=== PATIENT | female | born 1960 | race Caucasian/White ===

== ENCOUNTER → 2019-11-28 14:52 | Outpatient (CLI) | payer MEDICARE, MEDICAID, SELFPAY ==
[2019-11-28 18:41] LABS: Coronavirus 19 IgG Antibody Negative (Negative); Coronavirus 19 IgM Antibody Negative (Negative)
== END ==
PROVIDERS: PCP Nurse Practitioner Family; Visit Provider Nurse Practitioner Family
DX: Z03.818 Encounter for observation for suspected exposure to other biological agents ruled out (principal)
CPT/HCPCS: 36415; 86328

== ENCOUNTER 2024-09-29 12:46 | Emergency (ER) | payer MEDICARE, SELFPAY ==
[2024-09-29 12:53] VITALS: BP 134/57; PULSE 99; RESP 18; TEMP 36.8; O2SAT 100; BMI 27.4
--- NOTE | 2024-09-29 13:06 | CT_ITS ---
FINAL REPORT TECHNIQUE: After the administration of intravenous contrast, axial images were obtained through the abdomen and pelvis by computed tomography. The study was performed with techniques to keep radiation dose as low as reasonably achievable, (ALARA). Individual dose reduction techniques using automated exposure control or adjustment of mA and/or kV according to the patient's size were employed. CLINICAL HISTORY: Abdominal pain, vaginal bleeding, hx of cervix CA COMPARISON: Ultrasound dated 09/29/2024 FINDINGS: Abdomen: The lung bases are clear. A small hiatal hernia is present. The liver parenchyma is homogeneous. The gallbladder is absent. The spleen, pancreas, and adrenals appear unremarkable. There are parapelvic renal cysts noted bilaterally. The aorta is normal in caliber. There is no free fluid or adenopathy. Pelvis: The appendix is normal in appearance. There is an enlarged, heterogeneous appearance of the cervix, which measures 5.2 cm in diameter. There is mild stranding in the adjacent fat seen at the margins. The urinary bladder is contracted, and probably thick-walled secondary to the compressed state. There is no free fluid or adenopathy. IMPRESSION: Enlarged, heterogeneous cervix which measures 5.2 cm in diameter, with mild stranding in the adjacent fat seen at the margins, consistent with the patient's known cervical cancer. Bilateral parapelvic renal cysts are noted. Reviewed, Interpreted and Dictated by Parish Muñoz MD Transcribed by Cassie Manley Authenticated and [facility]
--- NOTE | 2024-09-29 13:07 | US_ITS ---
PROCEDURE INFORMATION: Exam: US Pelvis, Transvaginal, Non-Obstetric Exam date and time: 09/29/2024 1:56 PM Age: 64 years old Clinical indication: Condition or disease; Cancer; Location of cancer or specific organ: Cx; Additional info: HX of cervical CA vag bleeding TECHNIQUE: Imaging protocol: Real-time transvaginal pelvic (non-obstetric) ultrasound with image documentation. Transvaginal imaging was used for better evaluation of the endometrium, adnexa, and/or cervix. COMPARISON: No relevant prior studies available. FINDINGS: Uterus: Uterus 6.8 x 3.2 x 4.9 cm. Cervical mass or adjacent masses measuring 1.9 x 2.2 cm and 1.1 x 1.4 cm. Endometrial stripe thickness 9 mm anteroposterior. Right ovary/adnexa: Right ovary not seen. Left ovary/adnexa: Left ovary not seen. Urinary bladder: Urinary bladder is limited. Intraperitoneal space: No free fluid. IMPRESSION: 1. Cervical mass or adjacent masses measuring 1.9 x 2.2 cm and 1.1 x 1.4 cm. 2. Endometrial stripe thickness of 9 mm is greater than expected for patient's age.
--- NOTE | 2024-09-29 13:08 | ED_ITS ---
Discharge Plan Disposition Patient Disposition: Home, Self-Care Condition: Good Prescriptions Prescriptions: New tramadol 50 mg tablet 50 mg PO Q8H PRN (Reason: pain) Qty: 12 0RF cefdinir 300 mg capsule 300 mg PO BID 7 Days Qty: 14 0RF Referrals Follow up/Referrals: Provider,Referral, [Primary Care Provider] - See instructions Activity Restrictions/Add. Instructions Additional Instructions/Restrictions: Your transvaginal ultrasound revealed a cervical mass and adjacent masses measuring 1.9 x 2.2 and 1.1, x1.4cm, your endometrial stripe thickness is of 9 mm which is graded to be expected for your age. Your CT of your abdomen and pelvis with IV contrast revealed an enlarged, heterogeneous cervix which measures around 5.2 cm in diameter with mild stranding in your adjacent fat seen at the margins of this is consistent with your known history of cervical cancer, there is also bilateral peripelvic renal cyst noted. Please show these results of your outside imaging studies to your cancer physician/women's health doctor at your next appointment. Please utilize your antibiotic for urinary tract infection as prescribed, please take with food. Please return to the emergency department with any worsening signs or symptoms to include worsening bleeding, feeling faint, or worsening pain, bleeding that soaks through more than 2 pads in an hour. Clinical Impressions Clinical Impression: Cervical cancer, Abnormal vaginal bleeding Instructions Patient Instructions: DI for Urinary Tract Infection (UTI), DI for Vaginal Bleeding Print Language Print Language: [place] Islander Discharge ED Provider: Chanel Zacarias General Adult HPI <KEVIN South - Last Filed: 09/29/24 17:08> General Chief complaint: Urogenital-Female Stated complaint: Cervical cancer symptoms has worsen Time Seen by Provider: 09/29/24 12:49 Mode of Arrival: Ambulatory Source of Information: Patient Description of Symptoms (Recalled from ER Triage Doc. by RN): Pt states she has a history of cervical cancer, and completed chemo and radiation in august 2024. Pt states last night she started to have vaginal bleeding and had a baseball sized blood clot that has passed and is soaking about 1 pad an hour. History of Present Illness HPI narrative: 64-year-old female presents to the emergency department with a 1 day history of lower abdominal cramping and diffuse vaginal bleeding, describes it as large clots , and up to soak through 1-2 pads, that occurred last night. Patient has a history of cervical cancer, unknown of which type, currently undergoing chemotherapy and radiation last chemotherapy and radiation treatment was last month in [place] this is where the patient lives, she is here visiting family at this time. She admits to subjective fever and chills, denies any chest pain, shortness of breath, denies any constipation diarrhea, denies any urinary type symptomatology, denies any abdominal pain at this time, denies any real hematochezia, hematemesis, or hemoptysis, patient states she does have past medical history consistent with hemorrhoids, and aortic stenosis, otherwise no other real relevant past medical history takes no other medications at home except for occasional baby aspirin for headache. She is a non-smoker denies any alcohol or drug use initial triage vitals are unremarkable. Onset (ago): day(s) Related Data Previous Rx's ?Medication ?Instructions ?Recorded cefdinir 300 mg capsule 300 mg PO BID 7 days #14 caps 09/29/24 tramadol 50 mg tablet 50 mg PO Q8H PRN pain #12 tabs 09/29/24 Allergies Allergy/AdvReac Type Severity Reaction Status Date / Time NO KNOWN ALLERGIES Allergy Uncoded 05/05/17 14:54 [facility] <KEVIN South - Last Filed: 09/29/24 17:08> [facility] Disclaimer: The information contained in this section may have been updated after the patient was seen, as this information can be updated by other users. Social History (Updated 09/29/24 @ 17:08 by KEVIN South) Smoking Status: Never smoker alcohol intake: never current occupational status: other Travel in the last 8 weeks?: None Have you lived/traveled outside US in past 30 days?: No Contact w/someone who lives/traveled outside US past 30 days?: No Exposure to someone with infectious disease in past 14 days?: No Do you have a fever (greater than 100.4 F or 38 C)?: No Have you tested positive for COVID-19?: No Exposed to someone with COVID-19 in past 14 days?: No Do you have a sore throat?: No Do you have a cough?: No Do you have any weakness?: No Do you have any diarrhea?: No Are you experiencing any unusual bleeding?: No Do you have any muscle aches/pain?: No Do you have any abdominal pain?: No Are you experiencing loss of taste or smell?: No <KEVIN South - Last Filed: 09/29/24 17:08> ROS Obtained: Yes All systems reviewed & no additional complaints except as documented Physical Exam <KEVIN South - Last Filed: 09/29/24 17:08> General General appearance: alert and in no apparent distress Head Head exam: atraumatic and normocephalic Eye Eye exam: Present PERRL and EOMI ENT ENT exam: Present mucous membranes moist Neck Neck exam: Present normal inspection Chest Chest inspection: Present normal inspection and symmetric chest wall rise Respiratory Respiratory exam: Present normal lung sounds bilaterally; Absent respiratory distress, wheezes or stridor Cardiovascular Cardiovascular exam: Present regular rate and normal rhythm Abdominal Exam Abdominal exam: Present soft; Absent tenderness, guarding, rebound or rigidity Extremities Exam Extremities exam: Present normal inspection Neurological Exam Neurological exam: Present alert and oriented X3 Psychiatric Psychiatric exam: Present normal affect Skin Skin exam: Present warm and dry Medical Decision Making <KEVIN South - Last Filed: 09/29/24 17:08> Medical Records Medical records reviewed: Yes I reviewed the patient's medical records. Screening: Per USPSTF and CDC recommendations, given the prevalence of disease in our region, it is our hospital?s policy to screen for HIV and viral Hepatitis for all patients aged 18 and over and those with ongoing risk factors. Travis Inquiry Pt receiving controlled substance: No Travis was queried for this patient: No Vital Signs: 09/29/24 12:53 09/29/24 15:01 09/29/24 17:22 Temperature 98.3 F 98.0 F Temperature Source Oral Pulse Rate 77 86 Pulse Rate [Right] 99 H Respiratory Rate 18 19 Blood Pressure 166/59 H 131/62 Blood Pressure [Right Arm] 134/57 L Blood Pressure Mean [Right Arm] 82 Blood Pressure Source [Right Arm] Automatic Cuff Blood Pressure Position [Right Arm] Sitting 02 Sat by Pulse Oximetry 100 97 Oxygen Delivery Method Room Air Room Air Lab Data Lab Results 09/29/24 13:14: WBC 4.3 L, RBC 4.19 L, Hgb 12.8, Hct 40.0, MCV 95.5, MCH 30.5, MCHC 32.0, RDW 14.7, Plt Count 113 L, MPV 10.1, Neut % (Auto) 65.0, Lymph % (Auto) 24.7, Jenkins % (Auto) 6.8, Eos % (Auto) 2.4, Baso % (Auto) 0.9, Neut # (Auto) 2.8, Lymph # (Auto) 1.1, Jenkins # (Auto) 0.3, Eos # (Auto) 0.1, Baso # (Auto) 0.0, Sodium 140, Potassium 4.4, Chloride 107, Carbon Dioxide 28, Anion Gap 9.4, BUN 16, Creatinine 1.10 H, Estimated Creat Clear 58, Estimated GFR 50 L , Est GFR ( Amer) 60, Glucose 114 H, Lactate 0.9, Calcium 9.5, Total Bilirubin 1.7 H, AST 38 H, ALT 19, Alkaline Phosphatase 111, Total Protein 7.8, Albumin 4.8, Globulin 3.0, Albumin/Globulin Ratio 1.6, Lipase 349 H 09/29/24 13:28: Blood Type A Positive, Antibody Screen Negative 09/29/24 15:43: Urine Color Red, Urine Appearance Turbid, Urine pH 5.0, Ur Specific [place] 1.020, Urine Protein 3+ A, Urine Glucose (UA) Trace, Urine Ketones 1+, Urine Blood 3+ A, Urine Nitrate Positive A, Urine Bilirubin Negative, Urine Urobilinogen 2.0, Ur Leukocyte Esterase 2+ A, Urine RBC Tntc, Urine WBC 5-10, Ur Squamous Epith Cells Occasional, Urine Bacteria Trace 09/29/24 13:14 09/29/24 13:14 Orders (Tests/Meds): ED MEDICATIONS Discontinued Medications Generic Name Dose Route Start Last Admin Trade Name Freq PRN Reason Stop Dose Admin Ceftriaxone Sodium 1 gm/ 50 mls @ 100 mls/hr 09/29/24 16:30 09/29/24 16:53 Sodium Chloride IV 09/29/24 16:59 Not Given ONCE ONE Ceftriaxone Sodium 1 gm/ 50 mls @ 100 mls/hr 09/29/24 16:54 09/29/24 16:58 Sodium Chloride IV 09/29/24 17:23 100 mls/hr ONCE ONE Administration Iopamidol 75 ml 09/29/24 14:53 09/29/24 14:54 Iopamidol-370 (76%);100ml Bottle IV 09/29/24 14:54 75 ml ONCE ONE Administration Sodium Chloride 10 ml 09/29/24 14:53 09/29/24 14:54 Sodium Chloride 0.9% 10ml Syr (Rad Only) IV 09/29/24 14:54 10 ml ONCE ONE Administration ORDERS Category Date Time Status Type and Screen Stat BBK 09/29/24 13:[address] abdomen pelvis w con Stat Cat Scan 09/29/24 13:06 Completed US transvaginal Stat Exams 09/29/24 13:07 Completed Complete Blood Count Auto Diff Stat Lab 09/29/24 13:14 Completed Comprehensive Metabolic Panel Stat Lab 09/29/24 13:14 Completed Lactic Acid Stat Lab 09/29/24 13:14 Completed Lipase Stat Lab 09/29/24 13:14 Completed Urinalysis and Microscopic Stat Lab 09/29/24 15:43 Completed Urine Culture Stat Micro 09/29/24 15:43 Received Medical Decision Narrative: 64-year-old female presents emergency department with vaginal bleeding, differential diagnosis include but not limited to, malignancy, abnormal uterine bleeding, polyp, fibroid, adenomyosis, endometriosis among others. I discussed patient case with attending physician Dr. Chinchilla Will obtain basic laboratory studies, type and screen, lactate lipase, urinalysis, transvaginal ultrasound, CT abdomen pelvis with contrast to be performed Mild leukopenia 4.3, hemoglobin hematocrit within normal limits, however there is some thrombocytopenia at 113 unsure of baseline CMP is notable for only elevated creatinine 1.1, no lactic acidosis total bilirubin is minimally elevated at 1.7, AST elevated at 38, lipase elevated at 349 I reviewed the patient's TVUS along the corresponding radiological report, cervical mass or adjacent masses measuring 1.9 x 2.2 cm and 1.1 x 1.4 cm endometrial stripe thickness 9 mm greater than expected for patient's age. Blood type a positive Urinalysis is notable for 3+ proteinuria, 1+ ketonuria, positive nitrites, 3+ hematuria, 2+ leukocyte esterase. Urine RBCs are too numerous to count, 5-10 WBCs, occasional squamous epithelial cells and trace urine bacteria, will give 1 g IV ceftriaxone for UTI. I reviewed the patient CT abdomen pelvis with contrast on the corresponding radiologic report, enlarged heterogeneous cervix which measures 5.2 cm in diameter with mild stranding in the adjacent fat seen at the margins consistent with patient's known cervical cancer, bilateral parapelvic renal cyst are noted. I discussed all results with the patient at the bedside, with treat patient with cefdinir 300 mg p.o. for UTI, and will refill patient's tramadol p.o. as needed for pain with ongoing cervical cancer, patient has appointment upcoming in September on the in [place] which is where she is from with her cancer physicians/providers, patient was given vaginal bleeding return precautions, hemoglobin hematocrit are stable, hemodynamically stable throughout her time in the emergency department, patient will return to emergency with any worsening signs or symptoms. Follow-up with providers as directed. Patient voiced understanding of the [facility] plan/discharge plan. <Romario Chinchilla MD - Last Filed: 09/30/24 08:18> Vital Signs: 09/29/24 12:53 09/29/24 15:01 09/29/24 17:22 Temperature 98.3 F 98.0 F Temperature Source Oral Pulse Rate 77 86 Pulse Rate [Right] 99 H Respiratory Rate 18 19 Blood Pressure 166/59 H 131/62 Blood Pressure [Right Arm] 134/57 L Blood Pressure Mean [Right Arm] 82 Blood Pressure Source [Right Arm] Automatic Cuff Blood Pressure Position [Right Arm] Sitting 02 Sat by Pulse Oximetry 100 97 Oxygen Delivery Method Room Air Room Air Lab Data Lab Results 09/29/24 13:14: WBC 4.3 L, RBC 4.19 L, Hgb 12.8, Hct 40.0, MCV 95.5, MCH 30.5, MCHC 32.0, RDW 14.7, Plt Count 113 L, MPV 10.1, Neut % (Auto) 65.0, Lymph % (Auto) 24.7, Jenkins % (Auto) 6.8, Eos % (Auto) 2.4, Baso % (Auto) 0.9, Neut # (Auto) 2.8, Lymph # (Auto) 1.1, Jenkins # (Auto) 0.3, Eos # (Auto) 0.1, Baso # (Auto) 0.0, Sodium 140, Potassium 4.4, Chloride 107, Carbon Dioxide 28, Anion Gap 9.4, BUN 16, Creatinine 1.10 H, Estimated Creat Clear 58, Estimated GFR 50 L , Est GFR ( Amer) 60, Glucose 114 H, Lactate 0.9, Calcium 9.5, Total Bilirubin 1.7 H, AST 38 H, ALT 19, Alkaline Phosphatase 111, Total Protein 7.8, Albumin 4.8, Globulin 3.0, Albumin/Globulin Ratio 1.6, Lipase 349 H 09/29/24 13:28: Blood Type A Positive, Antibody Screen Negative 09/29/24 15:43: Urine Color Red, Urine Appearance Turbid, Urine pH 5.0, Ur Specific [place] 1.020, Urine Protein 3+ A, Urine Glucose (UA) Trace, Urine Ketones 1+, Urine Blood 3+ A, Urine Nitrate Positive A, Urine Bilirubin Negative, Urine Urobilinogen 2.0, Ur Leukocyte Esterase 2+ A, Urine RBC Tntc, Urine WBC 5-10, Ur Squamous Epith Cells Occasional, Urine Bacteria Trace Orders (Tests/Meds): ED MEDICATIONS Discontinued Medications Generic Name Dose Route Start Last Admin Trade Name Freq PRN Reason Stop Dose Admin Ceftriaxone Sodium 1 gm/ 50 mls @ 100 mls/hr 09/29/24 16:30 09/29/24 16:53 Sodium Chloride IV 09/29/24 16:59 Not Given ONCE ONE Ceftriaxone Sodium 1 gm/ 50 mls @ 100 mls/hr 09/29/24 16:54 09/29/24 16:58 Sodium Chloride IV 09/29/24 17:23 100 mls/hr ONCE ONE Administration Iopamidol 75 ml 09/29/24 14:53 09/29/24 14:54 Iopamidol-370 (76%);100ml Bottle IV 09/29/24 14:54 75 ml ONCE ONE Administration Sodium Chloride 10 ml 09/29/24 14:53 09/29/24 14:54 Sodium Chloride 0.9% 10ml Syr (Rad Only) IV 09/29/24 14:54 10 ml ONCE ONE Administration ORDERS Category Date Time Status Type and Screen Stat BBK 09/29/24 13:[address] abdomen pelvis w con Stat Cat Scan 09/29/24 13:06 Completed US transvaginal Stat Exams 09/29/24 13:07 Completed Complete Blood Count Auto Diff Stat Lab 09/29/24 13:14 Completed Comprehensive Metabolic Panel Stat Lab 09/29/24 13:14 Completed Lactic Acid Stat Lab 09/29/24 13:14 Completed Lipase Stat Lab 09/29/24 13:14 Completed Urinalysis and Microscopic Stat Lab 09/29/24 15:43 Completed Urine Culture Stat Micro 09/29/24 15:43 Received Medical Decision Narrative: 64-year-old female presents emergency department with vaginal bleeding, differential diagnosis include but not limited to, malignancy, abnormal uterine bleeding, polyp, fibroid, adenomyosis, endometriosis among others. I discussed patient case with attending physician Dr. Chinchilla Will obtain basic laboratory studies, type and screen, lactate lipase, urinalysis, transvaginal ultrasound, CT abdomen pelvis with contrast to be performed Mild leukopenia 4.3, hemoglobin hematocrit within normal limits, however there is some thrombocytopenia at 113 unsure of baseline CMP is notable for only elevated creatinine 1.1, no lactic acidosis total bilirubin is minimally elevated at 1.7, AST elevated at 38, lipase elevated at 349 I reviewed the patient's TVUS along the corresponding radiological report, cervical mass or adjacent masses measuring 1.9 x 2.2 cm and 1.1 x 1.4 cm endometrial stripe thickness 9 mm greater than expected for patient's age. Blood type a positive Urinalysis is notable for 3+ proteinuria, 1+ ketonuria, positive nitrites, 3+ hematuria, 2+ leukocyte esterase. Urine RBCs are too numerous to count, 5-10 WBCs, occasional squamous epithelial cells and trace urine bacteria, will give 1 g IV ceftriaxone for UTI. I reviewed the patient CT abdomen pelvis with contrast on the corresponding radiologic report, enlarged heterogeneous cervix which measures 5.2 cm in diameter with mild stranding in the adjacent fat seen at the margins consistent with patient's known cervical cancer, bilateral parapelvic renal cyst are noted. I discussed all results with the patient at the bedside, with treat patient with cefdinir 300 mg p.o. for UTI, and will refill patient's tramadol p.o. as needed for pain with ongoing cervical cancer, patient has appointment upcoming in September on the in [place] which is where she is from with her cancer physicians/providers, patient was given vaginal bleeding return precautions, hemoglobin hematocrit are stable, hemodynamically stable throughout her time in the emergency department, patient will return to emergency with any worsening signs or symptoms. Follow-up with providers as directed. Patient voiced understanding of the [facility] plan/discharge plan. I was consulted by the ABA, and we discussed the complexity of the problems being addressed. I approved the treatment and management plan for this patient's care in the Emergency Department, thus performing a substantive portion of the medical decision making. Romario Chinchilla MD Critical Care <KEVIN South - Last Filed: 09/29/24 17:08> Critical Care Time Critical Care Time: No
[2024-09-29 13:29] LABS: Basophils % 0.9 % (0.1-2.0); Eosinophils # 0.1 Kmm3 (0.0-0.4); Eosinophils % 2.4 % (0.1-12.0); Hemoglobin 12.8 g/dL (12.2-16.2); Immature Granulocytes # 0.01 10^3uL; Immature Granulocytes % 0.2 %; Lymphocytes # 1.1 K/mm3 (0.7-4.5); Lymphocytes % 24.7 % (10-50); Mean Corpuscular Hemoglobin 30.5 pg (27.0-31.2); Mean Corpuscular Volume 95.5 fl (81-99); Mean Platelet Volume 10.1 fl (7.4-10.4); Monocytes # 0.3 K/mm3 (0.1-1.0); Monocytes % 6.8 % (1.7-9.3); Neutrophils # 2.8 K/mm3 (1.8-7.8); Nucleated Red Blood Cells # 0 10^3/uL; Nucleated Red Blood Cells % 0 %; Platelet Count 113 K/mm3 (142-424); Red Blood Count 4.19 M/mm3 (4.20-5.40); Red Cell Distribution Width 14.7 % (11.5-17.5); Red Cell Distribution Width-SD 51.7 fL; White Blood Count 4.3 K/mm3 (4.8-10.8)
--- NOTE | 2024-09-29 13:45 | PC.NURSE ---
pt to ultrasound
[2024-09-29 13:48] LABS: Albumin Level 4.8 g/dl (3.5-5.0); Chloride 107 mmol/L (98-107); Potassium 4.4 mmoL/L (3.5-5.1); Sodium 140 mmol/L (136-145)
[2024-09-29 13:50] LABS: Alanine Aminotransferase 19 U/L (12-78); Anion Gap 9.4 mEq/L (5-15); Aspartate Amino Transferase 38 U/L (14-36); Blood Urea Nitrogen 16 mg/dl (7-17); Carbon Dioxide 28 mmol/L (22.0-30.0); Creatinine Clearance Estimated 58 mL/min (50-200); Estimated Glomerular Filt Rate 50 ml/min (>60); GFR (African American) 60 ML/MIN (>60)
[2024-09-29 13:51] LABS: Albumin/Globulin Ratio 1.6 (1.1-1.8); Alkaline Phosphatase 111 U/L (38-126); Bilirubin,Total 1.7 mg/dl (0.2-1.3); Calcium 9.5 mg/dl (8.4-10.2); Glucose 114 mg/dl (74-100); Lactic Acid 0.9 mmol/L (0.7-2.1); Lipase 349 U/L (23-300); Total Protein,Serum 7.8 g/dl (6.3-8.2)
--- NOTE | 2024-09-29 14:16 | PC.NURSE ---
pt back to room via wheelchair
--- NOTE | 2024-09-29 14:28 | PC.NURSE ---
PT IS GONE TO CT VIA WHEELCHAIR
[2024-09-29] MEDS: SODIUM CHLORIDE 0.9% 10ML SYR (RAD ONLY) 10 ML IV (14:54)
[2024-09-29] MEDS: IOPAMIDOL-370 (76%);100ML BOTTLE 75 ML IV (14:54)
[2024-09-29 15:01] VITALS: BP 166/59; PULSE 77; O2SAT 97
[2024-09-29 15:47] LABS: Microscopic, Urine URINE MICROSCOPIC (MICROSCOPIC)
[2024-09-29 15:51] LABS: Bilirubin,Urine Negative (Negative); Blood, Urine 3+ (Negative); Color,Urine RED (Yellow); Glucose,Urine (UA) TRACE (Negative); Ketones,Urine 1+ (Negative); Leukocyte Esterase,Urine 2+ (Negative); Nitrate,Urine POSITIVE (Negative); Protein,Urine 3+ (Negative)
[2024-09-29 15:52] LABS: Appearance,Urine Turbid (Clear)
[2024-09-29 16:23] LABS: Bacteria,Urine Trace /lpf; RBC,Urine TNTC #/hpf (0-3); Squamous Epithelial Cell,Urine Occasional #/hpf (0-5)
[2024-09-29] MEDS: CEFTRIAXONE 1 GM 1 GM in 0.9 % SODIUM CHLORIDE 50 ML IV (16:58)
[2024-09-29 17:22] VITALS: BP 131/62; PULSE 86; RESP 19; TEMP 36.7; O2SAT 99
== END 2024-09-29 17:26 | disposition home or self-care (01) ==
PROVIDERS: Physician Assistant; Emergency Provider Emergency Medicine
DX: N93.9 Abnormal uterine and vaginal bleeding, unspecified (principal); C53.9 Malignant neoplasm of cervix uteri, unspecified; Z92.21 Personal history of antineoplastic chemotherapy
CPT/HCPCS: 36415; 74177; 76830; 80053; 81001; 83605; 83690; 85025; 86850; 87086; 96365; 99285; J0696; Q9967